=== PATIENT | female | born 1950 | race Two or more races ===

== ENCOUNTER 2020-11-07 12:19 | Outpatient (CLI) | payer MEDICARE | END 2020-11-07 23:59 | disposition home or self-care (01) | LOC: STAR 12:19 | PROVIDERS: ATTEND Ophthalmology | DX: Z01.818 Encounter for other preprocedural examination (principal); Z01.812 Encounter for preprocedural laboratory examination; Z01.89 Encounter for other specified special examinations; R79.1 Abnormal coagulation profile | CPT/HCPCS: 93005 ==